=== PATIENT | male | born 1945 | race Caucasian/White ===

== ENCOUNTER 2020-12-01 14:14 | Emergency (ER) | payer OTHER ==
[2020-12-01] MEDS ORDERED: KEFLEX250 MG PO (16:23)
== END 2020-12-01 16:50 | disposition home or self-care (01) ==
LOC: FER 14:14
DX: S01.312A Laceration without foreign body of left ear, initial encounter (principal); I10 Essential (primary) hypertension; Z23 Encounter for immunization; W22.8XXA Striking against or struck by other objects, initial encounter; Y92.009 Unspecified place in unspecified non-institutional (private) residence as the place of occurrence of the external cause
CPT/HCPCS: 90471; 90715